=== PATIENT | female | born 1990 | race Caucasian/White ===

== ENCOUNTER 2016-12-05 10:27 | Emergency (ER) | payer OTHER ==
[~2016-12-05] VITALS: Ht 175.3 cm; Wt 82.6 kg
[2016-12-05 11:18] LABS: Basophils # (auto) 0 uL; Basophils % (auto) 0.3 % (0.0-2.0); CONDITION Y; DEFINITIVE SEE PRINTOUT; Eosinophils # (auto) 0.1 uL; Hematocrit 37.9 % (36.0-46.0); Lymphocytes # (auto) 2.3 uL; Mean Corpuscular Hemoglobin 26.9 pg (28.0-32.0); Mean Corpuscular Hgb Conc. 34.3 g/dL (32.0-36.0); Mean Corpuscular Volume 78.6 fL (80.0-100.0); Mean Platelet Volume 8.6 fL (7.4-10.4); Monocytes # (auto) 0.5 uL; Neutrophils # (auto) 2.3 uL; Neutrophils % (auto) 44.7 % (37.0-80.0); Platelet Count (auto) 231 10^3/uL (140-450); Red Cell Distribution Width 12.6 % (11.6-16.0); White Blood Cell 5.2 10^3/uL (4.4-10.8)
[2016-12-05 11:27] LABS: Urine RBC None Seen /hpf (0 - 4)
[2016-12-05 11:34] LABS: Urine Bilirubin Negative (Negative); Urine Blood Negative /uL (Negative); Urine Ca Oxalate Crystal FEW (None Seen); Urine Color Yellow (Yellow); Urine Glucose Normal (Normal); Urine Ketone Negative (Negative); Urine Mucus FEW (None Seen); Urine Nitrite Negative (Negative); Urine Squamous Epithelial Cell MOD /hpf (<5)
[2016-12-05 11:38] VITALS: BP 148/79
[2016-12-05 11:38] LABS: Albumin 3.6 g/dL (3.4-5.0); Bilirubin, Total 0.9 mg/dL (0.2-1.0); Calcium 10.5 mg/dL (8.5-10.1); Potassium 3.6 mmol/L (3.5-5.1); Total Protein 7.4 g/dL (6.4-8.2)
[2016-12-05] MEDS ORDERED: cefTRIAXone 1GM/50ML D5W 50 ML IV ONE (12:00)
[2016-12-05] MEDS ORDERED: SODIUM CHLORIDE 0.9% 1,000 ML IV ONE ×2 (12:00)
[2016-12-05 14:04] LABS: Amylase 33 U/L (25-115)
== END 2016-12-05 14:02 | disposition home or self-care (01) ==
LOC: EDBD 10:27 → ER 10:27
DX: E86.0 Dehydration (principal); N39.0 Urinary tract infection, site not specified; F17.200 Nicotine dependence, unspecified, uncomplicated
CPT/HCPCS: 36415; 71020; 74176; 76705; 80053; 81001; 82150; 83690; 84702; 85025; 96365; 99285; J0696; J7030

== ENCOUNTER 2018-08-27 14:26 | Emergency (ER) | payer MEDICAID, OTHER ==
[~2018-08-27] VITALS: Ht 175.3 cm; Wt 99.8 kg
[2018-08-27 14:56] VITALS: BP 125/77
[2018-08-27 15:30] LABS: Albumin 3.8 g/dL (3.4-5.0); Calcium 8.6 mg/dL (8.5-10.1); Potassium 3.7 mmol/L (3.5-5.1)
[2018-08-27 15:33] LABS: BUN/Creatinine Ratio 28.3; Bilirubin, Total 0.3 mg/dL (0.2-1.0); Total Protein 7.3 g/dL (6.4-8.2)
[2018-08-27 15:38] LABS: Alcohol, Urine < 3.0 mg/dL (0-5); Amphetamine Screen, Urine NEGATIVE (NEGATIVE); Barbiturate Scree,Urine NEGATIVE (NEGATIVE); Benzodiazephine Screen, Urine NEGATIVE (NEGATIVE); Cannabinoid Screen, Urine POSITIVE (NEGATIVE); Cocaine Screen, Urine NEGATIVE (NEGATIVE); Phencyclidine Screen, Urine NEGATIVE (NEGATIVE)
[2018-08-27 15:45] LABS: Opiate Scree,Urine NEGATIVE (NEGATIVE)
[2018-08-27 15:58] LABS: Basophils # (auto) 0.1 uL; Basophils % (auto) 0.7 % (0.0-2.0); Eosinophils # (auto) 0.2 uL; Eosinophils % (auto) 1.8 % (0.0-7.0); Hematocrit 43.9 % (36.0-46.0); Hemoglobin 14.7 g/dL (12.2-16.2); Lymphocytes # (auto) 3.2 uL; Lymphocytes % (auto) 36.9 % (10.0-50.0); Mean Corpuscular Hemoglobin 27.9 pg (28.0-32.0); Mean Corpuscular Hgb Conc. 33.5 g/dL (32.0-36.0); Mean Corpuscular Volume 83.4 fL (80.0-100.0); Monocytes # (auto) 0.3 uL; Monocytes % (auto) 3.5 % (0.0-12.0); Neutrophils # (auto) 4.9 uL; Neutrophils % (auto) 57.1 % (37.0-80.0); Nucleated Red Blood Cells % 0.1 %; Platelet Count (auto) 252 10^3/uL (140-450); Red Blood Cells 5.26 10^6/uL (4.0-5.20); Red Cell Distribution Width 14.1 % (11.8-14.3); White Blood Cell 8.6 10^3/uL (4.4-10.8)
[2018-08-27 16:12] LABS: Urine Pregnacy Test Negative (Negative)
[2018-08-27 16:37] LABS: Urine Bacteria NONE SEEN /hpf (None Seen); Urine Blood Negative /uL (Negative); Urine Specific Gravity 1.023 (1.001-1.035); Urine WBC 2 /hpf (0 - 5)
== END 2018-08-27 21:26 | disposition left against medical advice (07) ==
LOC: ER 14:26
DX: R53.1 Weakness (principal); Z53.21 Procedure and treatment not carried out due to patient leaving prior to being seen by health care provider
CPT/HCPCS: 36415; 80053; 80307; 81001; 81025; 84443; 85025; 93005

== ENCOUNTER 2018-10-02 20:02 | Emergency (ER) | payer MEDICAID ==
[~2018-10-02] VITALS: Ht 172.7 cm; Wt 99.8 kg
[2018-10-02 20:30] VITALS: BP 115/69
== END 2018-10-02 23:09 | disposition left against medical advice (07) ==
LOC: ER 20:05
DX: R51 Headache (principal); R07.89 Other chest pain; Z53.21 Procedure and treatment not carried out due to patient leaving prior to being seen by health care provider
CPT/HCPCS: 93005

== ENCOUNTER 2019-01-17 13:29 | Emergency (ER) | payer MEDICAID ==
[~2019-01-17] VITALS: Ht 175.3 cm; Wt 104.3 kg
[2019-01-17 14:38] LABS: Urine Bacteria FEW /hpf (None Seen); Urine Blood TRACE /uL (Negative); Urine Mucus FEW (None Seen); Urine Specific Gravity 1.014 (1.001-1.035); Urine WBC 1 /hpf (0 - 5)
[2019-01-17 14:45] LABS: Basophils # (auto) 0 uL; Basophils % (auto) 0.3 % (0.0-2.0); Eosinophils # (auto) 0 uL; Hematocrit 44.1 % (36.0-46.0); Hemoglobin 15.2 g/dL (12.2-16.2); Lymphocytes # (auto) 2.1 uL; Lymphocytes % (auto) 29.8 % (10.0-50.0); Mean Corpuscular Hemoglobin 27.8 pg (28.0-32.0); Mean Corpuscular Hgb Conc. 34.5 g/dL (32.0-36.0); Mean Corpuscular Volume 80.7 fL (80.0-100.0); Monocytes # (auto) 0.4 uL; Monocytes % (auto) 5.4 % (0.0-12.0); Neutrophils # (auto) 4.5 uL; Neutrophils % (auto) 64.5 % (37.0-80.0); Nucleated Red Blood Cells % 0.3 %; Platelet Count (auto) 235 10^3/uL (140-450); Red Blood Cells 5.47 10^6/uL (4.0-5.20); Red Cell Distribution Width 13.4 % (11.8-14.3); White Blood Cell 6.9 10^3/uL (4.4-10.8)
[2019-01-17] MEDS ORDERED: SODIUM CHLORIDE 0.9% 1,000 ML IVB ONE (14:46)
[2019-01-17 14:57] LABS: Acetaminophen < 2.0 ug/mL (10-30); Salicylate 2.3 mg/dL (2.8-20.0)
[2019-01-17 14:58] LABS: Albumin 3.7 g/dL (3.4-5.0); BUN/Creatinine Ratio 20.3; Calcium 8.9 mg/dL (8.5-10.1); Potassium 4.1 mmol/L (3.5-5.1)
[2019-01-17 14:58] LABS: Alcohol, Urine < 3.0 mg/dL (0-5); Amphetamine Screen, Urine NEGATIVE (NEGATIVE); Barbiturate Scree,Urine NEGATIVE (NEGATIVE); Benzodiazephine Screen, Urine NEGATIVE (NEGATIVE); Cannabinoid Screen, Urine NEGATIVE (NEGATIVE); Cocaine Screen, Urine NEGATIVE (NEGATIVE); Opiate Scree,Urine NEGATIVE (NEGATIVE); Phencyclidine Screen, Urine NEGATIVE (NEGATIVE)
[2019-01-17 15:00] LABS: Bilirubin, Total 0.4 mg/dL (0.2-1.0); Total Protein 7.3 g/dL (6.4-8.2)
[2019-01-17 17:55] VITALS: BP 104/68
== END 2019-01-17 18:55 | disposition home or self-care (01) ==
LOC: EDBD 13:29 → EDUNIT# 13:29 → ER 13:32
DX: T43.211A Poisoning by selective serotonin and norepinephrine reuptake inhibitors, accidental (unintentional), initial encounter (principal); R40.0 Somnolence; F41.9 Anxiety disorder, unspecified; F32.9 Major depressive disorder, single episode, unspecified; E05.90 Thyrotoxicosis, unspecified without thyrotoxic crisis or storm; F17.210 Nicotine dependence, cigarettes, uncomplicated; Y92.89 Other specified places as the place of occurrence of the external cause
CPT/HCPCS: 36415; 71046; 80053; 80307; 80329; 81001; 84702; 85025; 94761; 99284; J7030

== ENCOUNTER 2019-08-13 15:38 | Inpatient (IN) | payer MEDICAID ==
[~2019-08-13] VITALS: Ht 172.7 cm; Wt 122.7 kg
[2019-08-13] MEDS ORDERED: EPINEPHrine HCL INJECTION 4 MG in SODIUM CHL 0.9% 250 ML IV ONE ×4 (15:45)
[2019-08-13] MEDS: NOREPINEPHRINE 8 MG/250ML KIT 250 ML IV SCH (16:05)
[2019-08-13] MEDS ORDERED: NOREPINEPHRINE 8 MG/250ML KIT 250 ML IV ONE (16:07)
[2019-08-13] MEDS ORDERED: MIDAZOLAM DRIP 50 mg/50mL 50 ML IV ONE (16:09)
[2019-08-13 16:22] LABS: Basophils # (auto) 0 10 ^3/uL (0-0.2); Basophils % (auto) 0.3 % (0.0-2.0); Eosinophils # (auto) 0 10 ^3/uL (0-0.8); Hematocrit 41.3 % (36.0-46.0); Hemoglobin 12.9 g/dL (12.2-16.2); Lymphocytes # (auto) 6.2 10 ^3/uL (0.4-5.4); Lymphocytes % (auto) 36.7 % (10.0-50.0); Mean Corpuscular Hemoglobin 28.4 pg (28.0-32.0); Mean Corpuscular Hgb Conc. 31.3 g/dL (32.0-36.0); Mean Corpuscular Volume 90.9 fL (80.0-100.0); Monocytes # (auto) 0.4 10 ^3/uL (0-1.3); Monocytes % (auto) 2.4 % (0.0-12.0); Neutrophils # (auto) 10.3 10 ^3/uL (1.6-8.6); Neutrophils % (auto) 60.6 % (37.0-80.0); Nucleated Red Blood Cells % 0.1 %; Platelet Count (auto) 238 10^3/uL (140-450); Red Blood Cells 4.54 10^6/uL (4.0-5.20); Red Cell Distribution Width 14.3 % (11.8-14.3)
[2019-08-13 16:29] LABS: Urine WBC None Seen /hpf (0 - 5)
[2019-08-13] MEDS ORDERED: SODIUM CHLORIDE 0.9% 1,000 ML IV ONE (16:30)
[2019-08-13 16:39] LABS: Albumin 2.8 g/dL (3.4-5.0); Anion Gap 20 (5-15); Blood Alcohol < 3.0 mg/dL (0-5); Blood Urea Nitrogen 17 mg/dL (7-18); Calcium 7.6 mg/dL (8.5-10.1); Carbon Dioxide 14 mmol/L (21-32); Chloride 107 mmol/L (98-107); Glucose 332 mg/dL (74-106); Magnesium 2.8 mg/dL (1.6-2.6); Potassium 5.1 mmol/L (3.5-5.1); Sodium 141 mmol/L (136-145)
[2019-08-13 16:43] LABS: Alanine Aminotransferase 442 U/L (13-56); Alkaline Phosphatase 119 U/L (45-117); Aspartate Aminotransferase 425 U/L (15-37); BUN/Creatinine Ratio 10.4; Bilirubin, Total 0.2 mg/dL (0.2-1.0); GFR African American 48 mL/min; GFR Non-African American 40 mL/min; Total Protein 5.4 g/dL (6.4-8.2)
[2019-08-13 16:56] LABS: Urine Bacteria NONE SEEN /hpf (None Seen); Urine Blood Negative /uL (Negative); Urine Mucus FEW (None Seen); Urine Pregnacy Test Negative (Negative); Urine Specific Gravity 1.021 (1.001-1.035)
[2019-08-13] MEDS: MIDAZOLAM DRIP 50 mg/50mL 50 ML IV SCH (17:13)
[2019-08-13 17:14] LABS: Amphetamine Screen, Urine NEGATIVE (NEGATIVE); Barbiturate Scree,Urine NEGATIVE (NEGATIVE); Benzodiazephine Screen, Urine NEGATIVE (NEGATIVE); Cannabinoid Screen, Urine POSITIVE (NEGATIVE); Cocaine Screen, Urine NEGATIVE (NEGATIVE); Opiate Scree,Urine NEGATIVE (NEGATIVE); Phencyclidine Screen, Urine NEGATIVE (NEGATIVE)
[2019-08-13] MEDS ORDERED: FLUMAZENIL 0.1 MG/ML INJ 10ML MDV IV ONE (17:15)
[2019-08-13 17:16] LABS: Lactic Acid w/Reflex 11.8 mmol/L (0.4-2.0)
[2019-08-13 18:24] LABS: Acetaminophen 3.8 ug/mL (10-30); Salicylate < 1.7 mg/dL (2.8-20.0)
[2019-08-13] MEDS ORDERED: SODIUM BICARBONATE 8.4 % INJ 50ML VIAL IV ONE (18:45)
[2019-08-13] MEDS ORDERED: SODIUM BICARBONATE 8.4% INJ 50ML SYRINGE ONE (18:53)
[2019-08-13] MEDS ORDERED: SODIUM BICARBONATE 50ML VIAL 150 ML in D5W 5% 1,000 ML IV ONE (19:00)
[2019-08-13] MEDS ORDERED: methylPREDNISolone SOD SUCC 125 MG/2 ML VL IV ONE (19:45)
[2019-08-13] MEDS ORDERED: MANNITOL 20% SOLN 100 gm/500ml 250 ML IV ONE (19:45)
[2019-08-13] MEDS ORDERED: MANNITOL 20 % (20GM/100ML) 500 ML IV ONE (20:33)
[2019-08-13] MEDS ORDERED: VANCOMYCIN PER PHARMACY 0 MG IV SCH (22:15)
[2019-08-13] MEDS ORDERED: ONDANSETRON HCL 4 MG/2 ML VIAL IV PRN (22:15)
[2019-08-13 22:20] VITALS: BP 118/78
[2019-08-13] MEDS ORDERED: MORPHINE SULF INJ 2 MG/ML SYRINGE 1ML IV PRN (22:30)
[2019-08-13] MEDS ORDERED: NITROGLYCERIN 0.4 MG SL TAB SL PRN (22:30)
[2019-08-13] MEDS ORDERED: VANCOMYCIN 1GM/250ML 250 ML IV ONE (22:45)
[2019-08-13 23:01] LABS: BUN/Creatinine Ratio 14.2; Calcium 7.1 mg/dL (8.5-10.1); Potassium 4.1 mmol/L (3.5-5.1)
[2019-08-13] MEDS ORDERED: CALCIUM GLUC 4.65meq/50ml D5AE 50 ML IV ONE (23:15)
[2019-08-13] MEDS: SODIUM CHLORIDE 0.9% 1,000 ML IV SCH (23:29)
[2019-08-14] VITALS (66 sets, daily range): BP systolic 84–118; BP diastolic 53–84
[2019-08-14] MEDS: PIPERACILLIN-TAZOB 3.375GM 100 ML IV SCH ×4 (00:23→18:06)
[2019-08-14] MEDS: DexAMETHasone SOD PHOS 4 MG/1ML SDV INJ IV SCH ×3 (00:33→12:15)
[2019-08-14] MEDS ORDERED: MANNITOL 20 % (20GM/100ML) 500 ML IV ONE (02:20)
[2019-08-14] MEDS: MANNITOL IV SCH ×4 (02:39→14:35)
[2019-08-14 09:47] LABS: Basophils # (auto) 0 10 ^3/uL (0-0.2); Basophils % (auto) 0.1 % (0.0-2.0); Eosinophils # (auto) 0 10 ^3/uL (0-0.8); Neutrophils % (auto) 91.2 % (37.0-80.0)
[2019-08-14 09:49] LABS: Lymphocytes # (auto) 0.8 10 ^3/uL (0.4-5.4); Lymphocytes % (auto) 5.8 % (10.0-50.0); Mean Corpuscular Hemoglobin 29.2 pg (28.0-32.0); Mean Corpuscular Hgb Conc. 34.4 g/dL (32.0-36.0); Monocytes # (auto) 0.4 10 ^3/uL (0-1.3); Monocytes % (auto) 2.9 % (0.0-12.0); Neutrophils # (auto) 12.5 10 ^3/uL (1.6-8.6); Nucleated Red Blood Cells % 0.3 %; Platelet Count (auto) 264 10^3/uL (140-450); Red Blood Cells 5.89 10^6/uL (4.0-5.20); Red Cell Distribution Width 14.1 % (11.8-14.3); White Blood Cell 13.7 10^3/uL (4.4-10.8)
[2019-08-14 09:55] LABS: Hemoglobin 17.2 g/dL (12.2-16.2)
[2019-08-14 09:56] LABS: Mean Corpuscular Volume 84.9 fL (80.0-100.0)
[2019-08-14 10:11] LABS: Albumin 3.5 g/dL (3.4-5.0); BUN/Creatinine Ratio 12.3; Calcium 8.4 mg/dL (8.5-10.1)
[2019-08-14 10:18] LABS: Bilirubin, Total 0.6 mg/dL (0.2-1.0); Total Protein 7.1 g/dL (6.4-8.2)
[2019-08-14] MEDS: ASPirin 81 mg TAB PO SCH (10:30)
[2019-08-14] MEDS: SODIUM CHLORIDE 0.9% 1,000 ML IV SCH (11:35)
[2019-08-14] MEDS: POTASSIUM CHL 20MEQ/100ML 100 ML IV SCH ×3 (12:55→16:31)
[2019-08-14] MEDS ORDERED: EPINEPHrine HCL 1 MG/10 ML SYRG IV ONE (13:00)
[2019-08-14] MEDS ORDERED: SODIUM BICARBONATE 8.4% INJ 50ML SYRINGE IV ONE (13:00)
[2019-08-14] MEDS: MIDAZOLAM DRIP 50 mg/50mL 50 ML IV SCH (14:35)
[2019-08-14] MEDS: NOREPINEPHRINE 8 MG/250ML KIT 250 ML IV SCH (16:15)
[2019-08-14] MEDS: FREE WATER GT SCH (18:06)
[2019-08-14] MEDS ORDERED: FLUO-125 PO (18:52)
[2019-08-14] MEDS ORDERED: METH5T PO (18:52)
[2019-08-14] MEDS ORDERED: PROP60CA34 PO (18:52)
[2019-08-14] MEDS ORDERED: AMOX500C2 PO (18:52)
[2019-08-14] MEDS ORDERED: BUSP10TA90 PO (18:52)
[2019-08-14] MEDS ORDERED: RIS1T PO (18:52)
[2019-08-14] MEDS ORDERED: AMOX250C3 PO (18:52)
[2019-08-14] MEDS ORDERED: ESCI20TA PO (18:52)
[2019-08-14] MEDS ORDERED: HYDR-4924 PO (18:52)
[2019-08-14] MEDS ORDERED: TRAZ50TA2 PO (18:52)
[2019-08-14] MEDS ORDERED: ARIP1TAB7 PO (18:52)
[2019-08-14] MEDS ORDERED: OXCA600T3 PO (18:52)
[2019-08-14] MEDS ORDERED: NAP500T PO (18:52)
[2019-08-14] MEDS ORDERED: VANCOMYCIN 1GM/250ML 250 ML IV ONE (23:00)
[2019-08-15] VITALS (82 sets, daily range): BP systolic 93–135; BP diastolic 57–82
[2019-08-15 04:22] LABS: Basophils # (auto) 0 10 ^3/uL (0-0.2); Basophils % (auto) 0.1 % (0.0-2.0); Eosinophils # (auto) 0 10 ^3/uL (0-0.8); Hematocrit 46.5 % (36.0-46.0); Hemoglobin 15.6 g/dL (12.2-16.2); Lymphocytes # (auto) 1.3 10 ^3/uL (0.4-5.4); Lymphocytes % (auto) 12.4 % (10.0-50.0); Mean Corpuscular Hemoglobin 28.8 pg (28.0-32.0); Mean Corpuscular Hgb Conc. 33.5 g/dL (32.0-36.0); Mean Corpuscular Volume 86.1 fL (80.0-100.0); Monocytes # (auto) 0.9 10 ^3/uL (0-1.3); Monocytes % (auto) 8.6 % (0.0-12.0); Neutrophils # (auto) 7.9 10 ^3/uL (1.6-8.6); Neutrophils % (auto) 78.9 % (37.0-80.0); Platelet Count (auto) 197 10^3/uL (140-450); Red Cell Distribution Width 14.7 % (11.8-14.3); White Blood Cell 10.1 10^3/uL (4.4-10.8)
[2019-08-15 04:45] LABS: Albumin 2.6 g/dL (3.4-5.0); BUN/Creatinine Ratio 14.6; Calcium 8.2 mg/dL (8.5-10.1); Potassium 3.9 mmol/L (3.5-5.1)
[2019-08-15 04:50] LABS: Bilirubin, Total 0.4 mg/dL (0.2-1.0); Total Protein 6.2 g/dL (6.4-8.2)
[2019-08-15] MEDS: SODIUM CHLORIDE 0.9% 1,000 ML IV SCH (05:30)
[2019-08-15] MEDS: PIPERACILLIN-TAZOB 3.375GM 100 ML IV SCH ×5 (06:13→23:36)
[2019-08-15] MEDS: FREE WATER GT SCH ×5 (06:13→23:36)
[2019-08-15] MEDS: ASPirin 81 mg TAB PO SCH (12:12)
[2019-08-15] MEDS: VANCOMYCIN 1GM/250ML 250 ML IV SCH (14:59)
[2019-08-15] MEDS: D5W/SOD CHL 0.45% 1,000 ML IV SCH (14:59)
[2019-08-15] MEDS: MIDAZOLAM DRIP 50 mg/50mL 50 ML IV SCH (16:14)
[2019-08-15] MEDS: NOREPINEPHRINE 8 MG/250ML KIT 250 ML IV SCH (16:15)
[2019-08-15] MEDS ORDERED: Jevity 1.2 Cal/Fiber 1 Liter GT SCH (16:45)
[2019-08-16] VITALS (58 sets, daily range): BP systolic 110–148; BP diastolic 69–92
[2019-08-16] MEDS: D5W/SOD CHL 0.45% 1,000 ML IV SCH ×2 (01:28→10:52)
[2019-08-16] MEDS: VANCOMYCIN 1GM/250ML 250 ML IV SCH (02:53)
[2019-08-16 04:28] LABS: Hematocrit 45.1 % (36.0-46.0); Hemoglobin 14.6 g/dL (12.2-16.2); Mean Corpuscular Hemoglobin 28.2 pg (28.0-32.0); Mean Corpuscular Hgb Conc. 32.5 g/dL (32.0-36.0); Mean Corpuscular Volume 86.9 fL (80.0-100.0); Platelet Count (auto) 160 10^3/uL (140-450); Red Blood Cells 5.19 10^6/uL (4.0-5.20); White Blood Cell 8.5 10^3/uL (4.4-10.8)
[2019-08-16 04:30] LABS: Basophils % (manual) 0 (0.0-2.0); Blast Cells 0; Eosinophils % (manual) 0 (0-7); Myelocytes % 0; Promyelocytes % 0; Reactive Lymphocytes 0
[2019-08-16 04:32] LABS: Potassium 3.2 mmol/L (3.5-5.1)
[2019-08-16 04:37] LABS: Albumin 2.5 g/dL (3.4-5.0); BUN/Creatinine Ratio 15.9; Bilirubin, Total 0.6 mg/dL (0.2-1.0); Calcium 8.3 mg/dL (8.5-10.1); Total Protein 6.3 g/dL (6.4-8.2)
[2019-08-16] MEDS: PIPERACILLIN-TAZOB 3.375GM 100 ML IV SCH ×3 (05:11→18:00)
[2019-08-16] MEDS: FREE WATER GT SCH ×5 (05:11→22:00)
[2019-08-16 06:31] LABS: Band Neutrophils % (manual) 23; Lymphocytes % (manual) 54 (10.0-50.0); Metamyelocytes % 1; Monocytes % (manual) 7 (0-12)
[2019-08-16] MEDS: ASPirin 81 mg TAB PO SCH (10:52)
[2019-08-16] MEDS: POTASSIUM CHL 20MEQ/100ML 100 ML IV SCH ×2 (10:52→14:28)
[2019-08-16] MEDS ORDERED: POTASSIUM CHL 20MEQ/100ML 100 ML IV ONE (14:31)
[2019-08-16] MEDS: MIDAZOLAM DRIP 50 mg/50mL 50 ML IV SCH (15:04)
[2019-08-16] MEDS: NOREPINEPHRINE 8 MG/250ML KIT 250 ML IV SCH (15:04)
[2019-08-16] MEDS: DESMOPRESSIN ACET 4 MCG/1 ML AMPULE SUBCUT SCH (22:00)
[2019-08-17] VITALS (59 sets, daily range): BP systolic 108–139; BP diastolic 66–88
[2019-08-17] MEDS: FREE WATER GT SCH ×5 (02:00→21:57)
[2019-08-17 04:28] LABS: Albumin 2.4 g/dL (3.4-5.0); Calcium 8.8 mg/dL (8.5-10.1)
[2019-08-17 04:31] LABS: BUN/Creatinine Ratio 15.4; Bilirubin, Total 0.5 mg/dL (0.2-1.0); Total Protein 6.4 g/dL (6.4-8.2)
[2019-08-17 05:09] LABS: Potassium 2.9 mmol/L (3.5-5.1)
[2019-08-17] MEDS: D5W/SOD CHL 0.45% 1,000 ML IV SCH ×3 (05:56→16:30)
[2019-08-17] MEDS: PIPERACILLIN-TAZOB 3.375GM 100 ML IV SCH ×5 (06:29→23:21)
[2019-08-17] MEDS: POTASSIUM CHL 20MEQ/100ML 100 ML IV SCH ×5 (08:00→20:53)
[2019-08-17] MEDS: ASPirin 81 mg TAB PO SCH (10:00)
[2019-08-17 16:27] LABS: BUN/Creatinine Ratio 17.2; Calcium 8.6 mg/dL (8.5-10.1)
[2019-08-17 16:52] LABS: Potassium 2.9 mmol/L (3.5-5.1)
[2019-08-17] MEDS: NOREPINEPHRINE 8 MG/250ML KIT 250 ML IV SCH (20:42)
[2019-08-17] MEDS: MIDAZOLAM DRIP 50 mg/50mL 50 ML IV SCH ×2 (20:43→23:22)
[2019-08-17] MEDS: DESMOPRESSIN ACET 4 MCG/1 ML AMPULE SUBCUT SCH (22:00)
[2019-08-18] VITALS (69 sets, daily range): BP systolic 108–177; BP diastolic 55–96
[2019-08-18] MEDS: D5W/SOD CHL 0.45% 1,000 ML IV SCH ×3 (01:20→22:30)
[2019-08-18] MEDS: FREE WATER GT SCH ×7 (02:00→21:59)
[2019-08-18 04:25] LABS: Albumin 2.1 g/dL (3.4-5.0); Calcium 8.6 mg/dL (8.5-10.1); Magnesium 2.6 mg/dL (1.6-2.6); Potassium 3.6 mmol/L (3.5-5.1)
[2019-08-18 04:29] LABS: BUN/Creatinine Ratio 20.1; Bilirubin, Total 0.3 mg/dL (0.2-1.0); Total Protein 5.7 g/dL (6.4-8.2)
[2019-08-18] MEDS: PIPERACILLIN-TAZOB 3.375GM 100 ML IV SCH ×3 (06:00→18:17)
[2019-08-18] MEDS: ASPirin 81 mg TAB PO SCH (10:42)
[2019-08-18] MEDS: DESMOPRESSIN ACET 4 MCG/1 ML AMPULE SUBCUT SCH ×2 (11:04→21:59)
[2019-08-18 15:35] LABS: Basophils % (manual) 0 (0.0-2.0); Blast Cells 0; Eosinophils % (manual) 0 (0-7); Promyelocytes % 0; Reactive Lymphocytes 0
[2019-08-18 15:39] LABS: Mean Corpuscular Hgb Conc. 33.9 g/dL (32.0-36.0)
[2019-08-18 15:41] LABS: Hematocrit 33.9 % (36.0-46.0); Hemoglobin 11.5 g/dL (12.2-16.2); Mean Corpuscular Hemoglobin 29.5 pg (28.0-32.0); Mean Corpuscular Volume 87.2 fL (80.0-100.0); Platelet Count (auto) 61 10^3/uL (140-450); Red Blood Cells 3.89 10^6/uL (4.0-5.20); Red Cell Distribution Width 14.9 % (11.8-14.3)
[2019-08-18 15:58] LABS: Albumin 2.1 g/dL (3.4-5.0); Calcium 8.8 mg/dL (8.5-10.1); Magnesium 2.4 mg/dL (1.6-2.6); Potassium 3.6 mmol/L (3.5-5.1)
[2019-08-18 15:59] LABS: Band Neutrophils % (manual) 13; Lymphocytes % (manual) 32 (10.0-50.0); Metamyelocytes % 4; Monocytes % (manual) 6 (0-12); Myelocytes % 1
[2019-08-18 16:02] LABS: BUN/Creatinine Ratio 19.1; Bilirubin, Direct 0.1 mg/dL (0-0.2); Bilirubin, Total 0.4 mg/dL (0.2-1.0); Phosphorus 3.6 mg/dL (2.5-4.90); Total Protein 5.7 g/dL (6.4-8.2)
[2019-08-18 16:15] LABS: INR 1.23 (0.9-1.15); Partial Thromboplastin Time 29.1 sec (23.64-32.05)
[2019-08-18] MEDS: NOREPINEPHRINE 8 MG/250ML KIT 250 ML IV SCH (16:15)
[2019-08-18] MEDS ORDERED: ALBUMIN 5% 500 ML IV ONE (17:14)
[2019-08-18] MEDS ORDERED: ALBUMIN 5% 250 ML IV ONE ×2 (17:15)
[2019-08-18] MEDS ORDERED: VASOPRESSIN 50 UNITS in D5W 5% 247.5 ML IV SCH (17:15)
[2019-08-18] MEDS: VASOPRESSIN 50 UNITS in D5W 5% 247.5 ML IV SCH (18:50)
[2019-08-18 21:25] LABS: Hemoglobin 10.6 g/dL (12.2-16.2); Mean Corpuscular Hemoglobin 29.3 pg (28.0-32.0); Platelet Count (auto) 52 10^3/uL (140-450); Red Cell Distribution Width 14.9 % (11.8-14.3)
[2019-08-18 21:26] LABS: Hematocrit 31.4 % (36.0-46.0); Mean Corpuscular Hgb Conc. 33.6 g/dL (32.0-36.0); Red Blood Cells 3.61 10^6/uL (4.0-5.20); White Blood Cell 6.6 10^3/uL (4.4-10.8)
[2019-08-18 21:33] LABS: Basophils % (manual) 0 (0.0-2.0); Blast Cells 0; Eosinophils % (manual) 0 (0-7); Myelocytes % 0; Promyelocytes % 0; Reactive Lymphocytes 0
[2019-08-18 21:48] LABS: Urine Bacteria NONE SEEN /hpf (None Seen); Urine Blood TRACE /uL (Negative); Urine Budding Yeast MODERATE /hpf (None Seen); Urine Mucus FEW (None Seen); Urine Specific Gravity 1.023 (1.001-1.035); Urine WBC 7 /hpf (0 - 5)
[2019-08-18 21:55] LABS: Albumin 2.6 g/dL (3.4-5.0); Calcium 8.6 mg/dL (8.5-10.1); Magnesium 2.3 mg/dL (1.6-2.6); Potassium 3.4 mmol/L (3.5-5.1)
[2019-08-18 21:59] LABS: BUN/Creatinine Ratio 20.6; Bilirubin, Direct 0.2 mg/dL (0-0.2); Bilirubin, Total 0.5 mg/dL (0.2-1.0); Total Protein 5.9 g/dL (6.4-8.2)
[2019-08-18 22:04] LABS: Band Neutrophils % (manual) 24; Lymphocytes % (manual) 23 (10.0-50.0); Metamyelocytes % 2; Monocytes % (manual) 5 (0-12)
[2019-08-18 22:25] LABS: INR 1.29 (0.9-1.15); Partial Thromboplastin Time 29.4 sec (23.64-32.05)
[2019-08-18] MEDS ORDERED: SODIUM BICARBONATE 8.4 % INJ 50ML VIAL IV ONE ×2 (22:28→22:30)
[2019-08-18] MEDS ORDERED: POTASSIUM CHL 20MEQ/100ML 100 ML IV ONE ×2 (22:28→22:30)
[2019-08-19] VITALS (106 sets, daily range): BP systolic 114–263; BP diastolic 63–129
[2019-08-19] MEDS: PIPERACILLIN-TAZOB 3.375GM 100 ML IV SCH ×4 (00:04→17:44)
[2019-08-19] MEDS: FREE WATER GT SCH ×6 (02:08→21:38)
[2019-08-19 03:14] LABS: Basophils % (manual) 0 (0.0-2.0); Blast Cells 0; Eosinophils % (manual) 0 (0-7); Metamyelocytes % 0; Myelocytes % 0; Promyelocytes % 0; Reactive Lymphocytes 0
[2019-08-19 03:19] LABS: Basophils # (auto) 0 10 ^3/uL (0-0.2); Basophils % (auto) 0.3 % (0.0-2.0); Eosinophils # (auto) 0 10 ^3/uL (0-0.8); Lymphocytes # (auto) 1.9 10 ^3/uL (0.4-5.4); Monocytes # (auto) 0.5 10 ^3/uL (0-1.3); Neutrophils # (auto) 4.5 10 ^3/uL (1.6-8.6)
[2019-08-19 03:20] LABS: Hematocrit 30.3 % (36.0-46.0); Lymphocytes % (auto) 27.2 % (10.0-50.0); Mean Corpuscular Hemoglobin 28.7 pg (28.0-32.0); Monocytes % (auto) 7.5 % (0.0-12.0); Platelet Count (auto) 50 10^3/uL (140-450); Red Blood Cells 3.48 10^6/uL (4.0-5.20); Red Cell Distribution Width 14.9 % (11.8-14.3); White Blood Cell 6.9 10^3/uL (4.4-10.8)
[2019-08-19 03:24] LABS: Urine Bacteria FEW /hpf (None Seen); Urine Blood 2+ /uL (Negative); Urine Budding Yeast MODERATE /hpf (None Seen); Urine Specific Gravity 1.022 (1.001-1.035); Urine WBC 10 /hpf (0 - 5)
[2019-08-19 03:36] LABS: Albumin 2.5 g/dL (3.4-5.0); Calcium 8.3 mg/dL (8.5-10.1); Magnesium 2.3 mg/dL (1.6-2.6); Potassium 3.6 mmol/L (3.5-5.1)
[2019-08-19 03:42] LABS: BUN/Creatinine Ratio 24.4; Bilirubin, Direct 0.1 mg/dL (0-0.2); Bilirubin, Total 0.5 mg/dL (0.2-1.0); Phosphorus 3.3 mg/dL (2.5-4.90); Total Protein 5.6 g/dL (6.4-8.2)
[2019-08-19 03:48] LABS: INR 1.28 (0.9-1.15); Partial Thromboplastin Time 29.3 sec (23.64-32.05)
[2019-08-19 04:42] LABS: Band Neutrophils % (manual) 5; Lymphocytes % (manual) 29 (10.0-50.0); Monocytes % (manual) 11 (0-12)
[2019-08-19] MEDS: D5W/SOD CHL 0.45% 1,000 ML IV SCH ×2 (08:10→17:50)
[2019-08-19 09:18] LABS: Basophils % (manual) 0 (0.0-2.0); Blast Cells 0; Eosinophils % (manual) 0 (0-7); Metamyelocytes % 0; Myelocytes % 0; Promyelocytes % 0; Reactive Lymphocytes 0
[2019-08-19 09:20] LABS: Hemoglobin 10.1 g/dL (12.2-16.2); Platelet Count (auto) 50 10^3/uL (140-450); White Blood Cell 7.2 10^3/uL (4.4-10.8)
[2019-08-19 09:22] LABS: Hematocrit 30.3 % (36.0-46.0); Mean Corpuscular Hemoglobin 29.1 pg (28.0-32.0); Mean Corpuscular Hgb Conc. 33.4 g/dL (32.0-36.0); Mean Corpuscular Volume 87.2 fL (80.0-100.0); Red Blood Cells 3.48 10^6/uL (4.0-5.20); Red Cell Distribution Width 14.8 % (11.8-14.3)
[2019-08-19 09:47] LABS: Urine WBC None Seen /hpf (0 - 5)
[2019-08-19 09:48] LABS: INR 1.23 (0.9-1.15); Partial Thromboplastin Time 29.3 sec (23.64-32.05)
[2019-08-19 09:54] LABS: Albumin 2.5 g/dL (3.4-5.0); BUN/Creatinine Ratio 27.3; Calcium 8.5 mg/dL (8.5-10.1); Magnesium 2.4 mg/dL (1.6-2.6); Potassium 3.7 mmol/L (3.5-5.1)
[2019-08-19 09:58] LABS: Bilirubin, Direct 0.2 mg/dL (0-0.2); Bilirubin, Total 0.5 mg/dL (0.2-1.0); Phosphorus 3.5 mg/dL (2.5-4.90); Total Protein 5.9 g/dL (6.4-8.2)
[2019-08-19] MEDS: ASPirin 81 mg TAB PO SCH (09:58)
[2019-08-19] MEDS: DESMOPRESSIN ACET 4 MCG/1 ML AMPULE SUBCUT SCH (10:00)
[2019-08-19 10:14] LABS: Band Neutrophils % (manual) 4; Lymphocytes % (manual) 28 (10.0-50.0); Monocytes % (manual) 8 (0-12)
[2019-08-19 10:24] LABS: Urine Bacteria NONE SEEN /hpf (None Seen); Urine Blood 2+ /uL (Negative); Urine Budding Yeast LOADED /hpf (None Seen)
[2019-08-19] MEDS: VASOPRESSIN 50 UNITS in D5W 5% 247.5 ML IV SCH (13:56)
[2019-08-19 15:15] LABS: Basophils % (manual) 0 (0.0-2.0); Blast Cells 0; Eosinophils % (manual) 0 (0-7); Metamyelocytes % 0; Myelocytes % 0; Promyelocytes % 0; Reactive Lymphocytes 0
[2019-08-19 15:36] LABS: INR 1.22 (0.9-1.15)
[2019-08-19 15:39] LABS: Albumin 2.4 g/dL (3.4-5.0); Calcium 8.5 mg/dL (8.5-10.1); Magnesium 2.3 mg/dL (1.6-2.6); Potassium 3.7 mmol/L (3.5-5.1)
[2019-08-19 15:43] LABS: BUN/Creatinine Ratio 29.9; Bilirubin, Direct 0.2 mg/dL (0-0.2); Bilirubin, Total 0.5 mg/dL (0.2-1.0); Phosphorus 3.5 mg/dL (2.5-4.90); Total Protein 5.8 g/dL (6.4-8.2)
[2019-08-19 16:02] LABS: Urine Bacteria NONE SEEN /hpf (None Seen); Urine Blood 2+ /uL (Negative); Urine Budding Yeast MANY /hpf (None Seen); Urine Specific Gravity 1.019 (1.001-1.035); Urine WBC 26 /hpf (0 - 5)
[2019-08-19 16:04] LABS: White Blood Cell 8.8 10^3/uL (4.4-10.8)
[2019-08-19 16:05] LABS: Hematocrit 28.9 % (36.0-46.0); Hemoglobin 10.1 g/dL (12.2-16.2); Mean Corpuscular Hemoglobin 30.6 pg (28.0-32.0); Red Blood Cells 3.32 10^6/uL (4.0-5.20)
[2019-08-19 16:06] LABS: Band Neutrophils % (manual) 6; Lymphocytes % (manual) 23 (10.0-50.0); Mean Corpuscular Hgb Conc. 35.1 g/dL (32.0-36.0); Monocytes % (manual) 8 (0-12); Platelet Count (auto) 46 10^3/uL (140-450); Red Cell Distribution Width 14.6 % (11.8-14.3)
[2019-08-19] MEDS: MIDAZOLAM DRIP 50 mg/50mL 50 ML IV SCH (16:14)
[2019-08-19] MEDS: NOREPINEPHRINE 8 MG/250ML KIT 250 ML IV SCH (16:15)
[2019-08-19 21:17] LABS: Hemoglobin 9.6 g/dL (12.2-16.2)
[2019-08-19 21:19] LABS: Hematocrit 28.3 % (36.0-46.0); Mean Corpuscular Hemoglobin 29.2 pg (28.0-32.0); Mean Corpuscular Hgb Conc. 33.8 g/dL (32.0-36.0); Mean Corpuscular Volume 86.4 fL (80.0-100.0); Platelet Count (auto) 51 10^3/uL (140-450); Red Blood Cells 3.28 10^6/uL (4.0-5.20); Red Cell Distribution Width 14.3 % (11.8-14.3); White Blood Cell 8.8 10^3/uL (4.4-10.8)
[2019-08-19 21:30] LABS: Urine Bacteria NONE SEEN /hpf (None Seen); Urine Blood 2+ /uL (Negative); Urine Budding Yeast MODERATE /hpf (None Seen); Urine Specific Gravity 1.019 (1.001-1.035); Urine WBC 4 /hpf (0 - 5)
[2019-08-19 21:34] LABS: INR 1.22 (0.9-1.15); Partial Thromboplastin Time 29.7 sec (23.64-32.05)
[2019-08-19 21:37] LABS: Albumin 2.3 g/dL (3.4-5.0); BUN/Creatinine Ratio 29.2; Calcium 8.3 mg/dL (8.5-10.1); Potassium 3.6 mmol/L (3.5-5.1)
[2019-08-19 21:40] LABS: Bilirubin, Total 0.6 mg/dL (0.2-1.0); Total Protein 5.6 g/dL (6.4-8.2)
[2019-08-19 22:40] LABS: Basophils % (manual) 0 (0.0-2.0); Blast Cells 0; Eosinophils % (manual) 0 (0-7); Metamyelocytes % 0; Myelocytes % 0; Promyelocytes % 0; Reactive Lymphocytes 0
[2019-08-19 22:54] LABS: Band Neutrophils % (manual) 3; Lymphocytes % (manual) 10 (10.0-50.0); Monocytes % (manual) 2 (0-12)
[2019-08-20] VITALS (104 sets, daily range): BP systolic 110–182; BP diastolic 62–102
[2019-08-20] MEDS: FREE WATER GT SCH ×6 (02:00→22:00)
[2019-08-20 03:35] LABS: Urine Bacteria NONE SEEN /hpf (None Seen); Urine Blood 1+ /uL (Negative); Urine Budding Yeast FEW /hpf (None Seen); Urine Specific Gravity 1.019 (1.001-1.035); Urine WBC <1 /hpf (0 - 5)
[2019-08-20 03:42] LABS: Basophils % (manual) 0 (0.0-2.0); Blast Cells 0; Eosinophils % (manual) 0 (0-7); Metamyelocytes % 0; Myelocytes % 0; Promyelocytes % 0; Reactive Lymphocytes 0
[2019-08-20 03:43] LABS: Hemoglobin 9.4 g/dL (12.2-16.2); Red Cell Distribution Width 14.4 % (11.8-14.3)
[2019-08-20 03:45] LABS: Hematocrit 28.1 % (36.0-46.0); Mean Corpuscular Hemoglobin 29.1 pg (28.0-32.0); Mean Corpuscular Hgb Conc. 33.6 g/dL (32.0-36.0); Mean Corpuscular Volume 86.6 fL (80.0-100.0); Platelet Count (auto) 53 10^3/uL (140-450); Red Blood Cells 3.24 10^6/uL (4.0-5.20)
[2019-08-20 03:55] LABS: Basophils % (manual) 0 (0.0-2.0); Blast Cells 0; Eosinophils % (manual) 0 (0-7); Metamyelocytes % 0; Myelocytes % 0; Promyelocytes % 0; Reactive Lymphocytes 0
[2019-08-20 03:59] LABS: INR 1.22 (0.9-1.15); Partial Thromboplastin Time 30.4 sec (23.64-32.05)
[2019-08-20 04:09] LABS: Magnesium 2.3 mg/dL (1.6-2.6); Potassium 3.5 mmol/L (3.5-5.1)
[2019-08-20 04:15] LABS: Band Neutrophils % (manual) 3; Lymphocytes % (manual) 13 (10.0-50.0); Monocytes % (manual) 1 (0-12)
[2019-08-20 04:16] LABS: Albumin 2.2 g/dL (3.4-5.0); BUN/Creatinine Ratio 29.8; Bilirubin, Direct 0.2 mg/dL (0-0.2); Bilirubin, Total 0.6 mg/dL (0.2-1.0); Calcium 8.2 mg/dL (8.5-10.1); Phosphorus 2.3 mg/dL (2.5-4.90); Total Protein 5.8 g/dL (6.4-8.2)
[2019-08-20 04:23] LABS: Band Neutrophils % (manual) 3; Lymphocytes % (manual) 13 (10.0-50.0); Monocytes % (manual) 1 (0-12)
[2019-08-20 04:25] LABS: White Blood Cell 9.9 10^3/uL (4.4-10.8)
[2019-08-20] MEDS: D5W/SOD CHL 0.45% 1,000 ML IV SCH ×2 (04:30→15:40)
[2019-08-20 04:49] LABS: Platelet Count (auto) 53 10^3/uL (140-450)
[2019-08-20 09:29] LABS: Basophils % (manual) 0 (0.0-2.0); Blast Cells 0; Metamyelocytes % 0; Myelocytes % 0; Promyelocytes % 0; Reactive Lymphocytes 0
[2019-08-20 09:36] LABS: Hematocrit 27.9 % (36.0-46.0); Hemoglobin 9.3 g/dL (12.2-16.2); Mean Corpuscular Hgb Conc. 33.4 g/dL (32.0-36.0); Platelet Count (auto) 54 10^3/uL (140-450); Red Blood Cells 3.21 10^6/uL (4.0-5.20); Red Cell Distribution Width 14.4 % (11.8-14.3); White Blood Cell 10.8 10^3/uL (4.4-10.8)
[2019-08-20 09:51] LABS: Albumin 2.2 g/dL (3.4-5.0); Calcium 8.4 mg/dL (8.5-10.1); Magnesium 2.4 mg/dL (1.6-2.6); Potassium 3.4 mmol/L (3.5-5.1)
[2019-08-20 09:53] LABS: INR 1.2 (0.9-1.15); Partial Thromboplastin Time 28.5 sec (23.64-32.05)
[2019-08-20 09:55] LABS: BUN/Creatinine Ratio 32.9; Bilirubin, Direct 0.3 mg/dL (0-0.2); Bilirubin, Total 0.6 mg/dL (0.2-1.0); Phosphorus 2.4 mg/dL (2.5-4.90); Total Protein 5.8 g/dL (6.4-8.2)
[2019-08-20] MEDS ORDERED: POTASSIUM EFFERVESENT TAB 25 MEQ GT ONE (10:15)
[2019-08-20] MEDS: ASPirin 81 mg TAB PO SCH (10:36)
[2019-08-20] MEDS: VASOPRESSIN 50 UNITS in D5W 5% 247.5 ML IV SCH (10:42)
[2019-08-20 11:43] LABS: Band Neutrophils % (manual) 4; Eosinophils % (manual) 1 (0-7); Lymphocytes % (manual) 18 (10.0-50.0); Monocytes % (manual) 7 (0-12)
[2019-08-20] MEDS ORDERED: cefTRIAXone 1GM/50ML D5W 50 ML IV ONE (14:00)
[2019-08-20] MEDS ORDERED: FLUCONAZOLE 200MG/100ML 100 ML IV ONE (14:00)
[2019-08-20 15:39] LABS: Basophils % (manual) 0 (0.0-2.0); Blast Cells 0; Eosinophils % (manual) 0 (0-7); Metamyelocytes % 0; Myelocytes % 0; Promyelocytes % 0; Reactive Lymphocytes 0
[2019-08-20 16:00] LABS: Urine Bacteria NONE SEEN /hpf (None Seen); Urine Blood 2+ /uL (Negative); Urine Budding Yeast LOADED /hpf (None Seen); Urine Mucus FEW (None Seen); Urine WBC 103 /hpf (0 - 5); Urine WBC Clumps PRESENT /hpf (None Seen)
[2019-08-20 16:10] LABS: INR 1.18 (0.9-1.15); Partial Thromboplastin Time 62.2 sec (23.64-32.05)
[2019-08-20] MEDS: MIDAZOLAM DRIP 50 mg/50mL 50 ML IV SCH (16:14)
[2019-08-20] MEDS: NOREPINEPHRINE 8 MG/250ML KIT 250 ML IV SCH (16:15)
[2019-08-20 16:58] LABS: Albumin 2.4 g/dL (3.4-5.0); Calcium 8.3 mg/dL (8.5-10.1); Hemoglobin 9.3 g/dL (12.2-16.2); Potassium 3.4 mmol/L (3.5-5.1); White Blood Cell 10.3 10^3/uL (4.4-10.8)
[2019-08-20 16:59] LABS: Band Neutrophils % (manual) 3; Hematocrit 26.8 % (36.0-46.0); Lymphocytes % (manual) 17 (10.0-50.0); Mean Corpuscular Hemoglobin 29.9 pg (28.0-32.0); Mean Corpuscular Hgb Conc. 34.7 g/dL (32.0-36.0); Mean Corpuscular Volume 86.3 fL (80.0-100.0); Monocytes % (manual) 6 (0-12); Platelet Count (auto) 52 10^3/uL (140-450)
[2019-08-20 17:01] LABS: BUN/Creatinine Ratio 32.9; Bilirubin, Total 0.6 mg/dL (0.2-1.0); Total Protein 5.9 g/dL (6.4-8.2)
[2019-08-20] MEDS: POTASSIUM CHL 20MEQ/100ML 100 ML IV SCH ×2 (21:27→22:00)
[2019-08-20 21:32] LABS: Hemoglobin 9.4 g/dL (12.2-16.2)
[2019-08-20 21:35] LABS: Hematocrit 27.1 % (36.0-46.0); Mean Corpuscular Hgb Conc. 34.8 g/dL (32.0-36.0); Mean Corpuscular Volume 86.1 fL (80.0-100.0); Platelet Count (auto) 53 10^3/uL (140-450); Red Blood Cells 3.14 10^6/uL (4.0-5.20); White Blood Cell 10.6 10^3/uL (4.4-10.8)
[2019-08-20 21:43] LABS: Basophils % (manual) 0 (0.0-2.0); Blast Cells 0; Eosinophils % (manual) 0 (0-7); Metamyelocytes % 0; Myelocytes % 0; Promyelocytes % 0; Reactive Lymphocytes 0
[2019-08-20 21:49] LABS: INR 1.18 (0.9-1.15); Partial Thromboplastin Time 29.1 sec (23.64-32.05)
[2019-08-20 22:00] LABS: Urine Bacteria NONE SEEN /hpf (None Seen); Urine Blood 2+ /uL (Negative); Urine Budding Yeast MANY /hpf (None Seen); Urine Mucus FEW (None Seen); Urine Specific Gravity 1.019 (1.001-1.035); Urine WBC 57 /hpf (0 - 5)
[2019-08-20 23:01] LABS: Band Neutrophils % (manual) 5; Lymphocytes % (manual) 20 (10.0-50.0); Monocytes % (manual) 5 (0-12)
[2019-08-21] VITALS (54 sets, daily range): BP systolic 108–148; BP diastolic 61–117
[2019-08-21] MEDS: FREE WATER GT SCH ×3 (02:00→10:00)
[2019-08-21] MEDS: D5W/SOD CHL 0.45% 1,000 ML IV SCH (02:00)
[2019-08-21 03:32] LABS: Basophils % (manual) 0 (0.0-2.0); Blast Cells 0; Eosinophils % (manual) 0 (0-7); Myelocytes % 0; Promyelocytes % 0; Reactive Lymphocytes 0
[2019-08-21 03:33] LABS: Hemoglobin 8.7 g/dL (12.2-16.2); Platelet Count (auto) 50 10^3/uL (140-450)
[2019-08-21 03:35] LABS: Hematocrit 25.8 % (36.0-46.0); Mean Corpuscular Hemoglobin 28.8 pg (28.0-32.0); Mean Corpuscular Hgb Conc. 33.8 g/dL (32.0-36.0); Mean Corpuscular Volume 85.2 fL (80.0-100.0); Red Blood Cells 3.02 10^6/uL (4.0-5.20); Red Cell Distribution Width 13.9 % (11.8-14.3); White Blood Cell 12.1 10^3/uL (4.4-10.8)
[2019-08-21 03:50] LABS: Albumin 2.1 g/dL (3.4-5.0); Calcium 8.3 mg/dL (8.5-10.1); Magnesium 2.1 mg/dL (1.6-2.6); Potassium 3.7 mmol/L (3.5-5.1)
[2019-08-21 03:53] LABS: INR 1.19 (0.9-1.15); Partial Thromboplastin Time 29.8 sec (23.64-32.05)
[2019-08-21 03:54] LABS: BUN/Creatinine Ratio 34.3; Bilirubin, Direct 0.4 mg/dL (0-0.2); Bilirubin, Total 0.6 mg/dL (0.2-1.0); Phosphorus 2.4 mg/dL (2.5-4.90); Total Protein 5.8 g/dL (6.4-8.2)
[2019-08-21 04:03] LABS: Albumin 2.3 g/dL (3.4-5.0); Calcium 8.5 mg/dL (8.5-10.1); Potassium 3.5 mmol/L (3.5-5.1)
[2019-08-21 04:08] LABS: BUN/Creatinine Ratio 34.7; Bilirubin, Total 0.6 mg/dL (0.2-1.0)
[2019-08-21 04:56] LABS: Band Neutrophils % (manual) 5; Lymphocytes % (manual) 19 (10.0-50.0); Metamyelocytes % 1
[2019-08-21 04:57] LABS: Monocytes % (manual) 3 (0-12)
[2019-08-21 09:01] LABS: Urine Bacteria FEW /hpf (None Seen); Urine Blood 2+ /uL (Negative); Urine Budding Yeast MODERATE /hpf (None Seen); Urine Mucus FEW (None Seen); Urine Specific Gravity 1.018 (1.001-1.035); Urine WBC 71 /hpf (0 - 5)
[2019-08-21 09:12] LABS: Basophils % (manual) 0 (0.0-2.0); Blast Cells 0; Eosinophils % (manual) 0 (0-7); Myelocytes % 0; Promyelocytes % 0; Reactive Lymphocytes 0
[2019-08-21 09:19] LABS: Hematocrit 25.5 % (36.0-46.0); Hemoglobin 8.7 g/dL (12.2-16.2); Mean Corpuscular Hemoglobin 29.1 pg (28.0-32.0); Mean Corpuscular Hgb Conc. 34.1 g/dL (32.0-36.0); Mean Corpuscular Volume 85.3 fL (80.0-100.0); Red Blood Cells 2.98 10^6/uL (4.0-5.20); Red Cell Distribution Width 13.6 % (11.8-14.3); White Blood Cell 10.9 10^3/uL (4.4-10.8)
[2019-08-21 09:22] LABS: Platelet Count (auto) 47 10^3/uL (140-450)
[2019-08-21 09:33] LABS: INR 1.17 (0.9-1.15); Partial Thromboplastin Time 30.5 sec (23.64-32.05)
[2019-08-21 09:35] LABS: Albumin 2.1 g/dL (3.4-5.0); Calcium 8.2 mg/dL (8.5-10.1); Potassium 3.3 mmol/L (3.5-5.1)
[2019-08-21 09:40] LABS: BUN/Creatinine Ratio 31.9; Bilirubin, Direct 0.4 mg/dL (0-0.2); Bilirubin, Total 0.8 mg/dL (0.2-1.0); Phosphorus 2.5 mg/dL (2.5-4.90); Total Protein 5.7 g/dL (6.4-8.2)
[2019-08-21] MEDS ORDERED: POTASSIUM CHL 20MEQ/100ML 100 ML IV SCH (09:45)
[2019-08-21 09:51] LABS: Band Neutrophils % (manual) 2; Lymphocytes % (manual) 27 (10.0-50.0); Metamyelocytes % 1; Monocytes % (manual) 4 (0-12)
[2019-08-21] MEDS: ASPirin 81 mg TAB PO SCH (10:00)
[2019-08-21] MEDS ORDERED: HYDROmorphone HCL 2 MG/ML VL IV PRN (11:45)
[2019-08-21] MEDS ORDERED: HEPARIN SODIUM (PORCINE) 1000 UNITS/ML 30ML VIAL IV ONE (11:45)
== END 2019-08-21 18:23 | disposition expired | DRG 720 ==
LOC: ER 15:38 → EDBD 15:38 → TELE 15:39 → ICU WEST 08-14 09:47
PROVIDERS: ADMIT Nurse Practitioner; ATTEND Internal Medicine
PROC: 5A1955Z Respiratory Ventilation, Greater than 96 Consecutive Hours (ICD-10-PCS; principal; 2019-08-13)
PROC: 0BH17EZ Insertion of Endotracheal Airway into Trachea, Via Natural or Artificial Opening (ICD-10-PCS; 2019-08-13)
PROC: 03HY32Z Insertion of Monitoring Device into Upper Artery, Percutaneous Approach (ICD-10-PCS; 2019-08-13)
PROC: 02HV33Z Insertion of Infusion Device into Superior Vena Cava, Percutaneous Approach (ICD-10-PCS; 2019-08-18)
PROC: 4A133B1 Monitoring of Arterial Pressure, Peripheral, Percutaneous Approach (ICD-10-PCS; 2019-08-18)
PROC: 4A133J1 Monitoring of Arterial Pulse, Peripheral, Percutaneous Approach (ICD-10-PCS; 2019-08-18)
DX: A41.9 Sepsis, unspecified organism (principal); G93.6 Cerebral edema; I21.A1 Myocardial infarction type 2; I46.9 Cardiac arrest, cause unspecified; J96.21 Acute and chronic respiratory failure with hypoxia; J69.0 Pneumonitis due to inhalation of food and vomit; G93.1 Anoxic brain damage, not elsewhere classified; J96.22 Acute and chronic respiratory failure with hypercapnia; N17.0 Acute kidney failure with tubular necrosis; G93.41 Metabolic encephalopathy; R40.2430 Glasgow coma scale score 3-8, unspecified time; E66.01 Morbid (severe) obesity due to excess calories; D72.829 Elevated white blood cell count, unspecified; E87.6 Hypokalemia; F12.90 Cannabis use, unspecified, uncomplicated; G47.10 Hypersomnia, unspecified; R57.9 Shock, unspecified; F41.9 Anxiety disorder, unspecified; F17.210 Nicotine dependence, cigarettes, uncomplicated; F32.9 Major depressive disorder, single episode, unspecified; E87.0 Hyperosmolality and hypernatremia; Z79.899 Other long term (current) drug therapy; Z68.41 Body mass index [BMI] 40.0-44.9, adult; T50.901A Poisoning by unspecified drugs, medicaments and biological substances, accidental (unintentional), initial encounter
CPT/HCPCS: 36415; 36600; 70450; 71045; 76700; 80048; 80053; 80202; 80307; 80320; 80329; 81001; 81025; 82150; 82248; 82805; 82962; 82977; 83036; 83605; 83690; 83735; 83880; 84100; 84443; 84484; 85007; 85025; 85027; 85610; 85730; 86850; 86900; 86901; 87040; 87070; 87077; 87081; 87086; 87088; 87186; 87205; 87804; 93005; 93306; 94002; 94003; 95819; 99291; G0378; J0171; J0610; J0696; J1100; J1450; J1644; J2250; J2543; J3480; J7060